=== PATIENT | female | born 1985 ===

== ENCOUNTER 2022-05-18 20:57 | Emergency (ER) | payer OTHER ==
[~2022-05-18] VITALS: Ht 154.9 cm; Wt 49.9 kg
[2022-05-18] MEDS ORDERED: [UNRECOGNIZED DRUG - OTHER] (21:24)
== END 2022-05-19 00:11 | disposition home or self-care (01) ==
LOC: ER 20:57
DX: T78.40XA Allergy, unspecified, initial encounter (principal); Z88.6 Allergy status to analgesic agent